=== PATIENT | female | born 1975 | race Caucasian/White ===

== ENCOUNTER 2024-03-25 00:18 | Day surgery (SDC) | payer OTHER, SELFPAY ==
[2024-03-19 14:37] VITALS: BMI 32.5
--- NOTE | 2024-03-19 14:44 | PC.NURSE ---
Report to the Outpatient Waiting Room, entrance under the green pavilion located off [facility], at time _0615_ on date _[id number]_. Planned Procedure Time: _0815_. Time changes happen often and if your time is changed the preop area will call you the afternoon before. - You and your visitor will be asked to self-screen and do not enter if you have any COVID symptoms. - A mask is optional within the hospital at this time. Patients may have clear liquids (water, carbonated beverages, clear teas, apple juice) until 3 hours prior to surgery with a maximum of 20 ounces. - No food from midnight until time of surgery Take the following medications with a SIP of water the morning of surgery: ___None DO NOT STOP ANY OF YOUR OTHER PRESCRIPTION MEDICATIONS PRIOR TO SURGERY ?EXCEPT THE FOLLOWING Medications to discontinue per physician None Date to take last dose Please no make-up, nail prydeinig, hairspray, perfume, deodorant, or body powder the day of surgery. No jewelry (including any body piercings) or valuables the day of surgery, leave them at home. Please take a shower or bath the night before, or the morning of, surgery with an antibacterial soap. Wear comfortable, loose fitting clothing. - Jewelry must be removed prior to entering the operating room. Rings and piercings that are not removed may be cut off. - The hospital will not accept responsibility for valuables. - Please leave all valuables, including medications, at home the day of surgery. If you are going home after surgery, a licensed retail delivery driver must drive you home. - NO public transportation without another adult if you receive anesthesia. - We recommend that an adult stay with you for 24 hours following discharge. - We also recommend that you do not drive, make important decision, drink alcoholic beverages, or take any drugs that were not prescribed by your health care provider for at least 24 hours after your discharge time. Follow any additional instructions given to you from your surgeon. If you or anyone in your household have experienced Covid symptoms in the past week, please notify your surgeon or the nurse liaison at the phone number below for possible testing. Telephone instructions given to __Tami__and asked if any additional questions and then verbalized understanding. Patient advised to call surgeon office or pre surgery nurse liaison [phone] if any additional questions.
--- NOTE | 2024-03-25 07:27 | WPDHPUPDATE1 ---
History and Physical Update Update Date/Time: 03/25/24 07:27 History and Physical has been reviewed, including an updated exam of the patient. There are NO changes in the patient's condition. Risks, benefits, and alternatives have been discussed and questions answered. Patient agrees to proceed with procedure.
--- NOTE | 2024-03-25 07:27 | PM.HPGS ---
History of Present Illness History of Present Illness Consent: Risks, benefits, and alternatives have been discussed and questions answered. Patient agrees to proceed with procedure. Chief complaint: abnormal uterine bleeding Narrative: Miryam Bernal is a 48 year old female with irregular heavy, prolonged bleeding. It was recommended to undergo D&C hysteroscopy. Risks of infection, bleeding perforation, and possible pathology are reviewed. Patient voices understanding and agrees to proceed. Review of Systems Review of Systems: not repeated day of surgery; patient states no changes in status PMFSH Past Medical History Medical History Acid reflux Anxiety Hyperlipidemia (normal spontaneous vaginal delivery) x2 Obese Seasonal allergies Vapes nicotine containing substance Surgical History Surgical History History of cholecystectomy Family History Family History Father Cancer Mother Hypertension Heart disease Grandparent Diabetes mellitus Depression Heart disease Cancer Social History Social History Smoking status: Current every day smoker Tobacco type: e-cigarettes/vaping Smokeless tobacco user: dissolvable tobacco Alcohol intake: current Alcohol use details: rarely Substance use: never Substance use type: does not use Lack of Transportation: No Lack of Food: Never True Current Housing: I Have Housing Concerned About Future Housing: No Difficulty Paying Gas/Electric Bills: No Difficulty Paying for Meds: No Currently Unemployed: No Education: Bachelor's Degree Difficulty w/ Childcare or Family Care: No Living arrangements: with family Occupation/Education: occupation Gender identity (if verbalized by the patient): Female Spiritual care concerns: No Meds Home Medications and Allergies Home Medications Medication Instructions Recorded Confirmed Type alprazolam 0.25 mg tablet 0.25 mg PO QHS PRN anxiety #30 tabs 11/10/23 03/19/24 Rx loratadine 10 mg tablet 10 mg PO DAILY 11/10/23 03/19/24 History albuterol sulfate 90 mcg/actuation 2 puff inhalation Q4H PRN 02/16/24 03/19/24 Rx aerosol inhaler shortness of breath or wheezing #8.5 grams omeprazole 20 mg capsule,delayed 20 mg PO DAILY #90 caps 02/19/24 03/19/24 Rx release Allergies Allergy/AdvReac Type Severity Reaction Status Date / Time No Known Allergies Allergy Verified 03/19/24 15:45 Exam Const: General: healthy appearing and alert Orientation/consciousness: patient oriented x3 Resp: Effort & Inspection: normal respiratory effort GI: GI Palp: Yes Soft to palpation, No Tenderness to palpation present (GI) and No Palpable mass present : External Female Exam: normal external appearance Speculum Exam - Vagina: normal appearance of the vagina and normal vaginal discharge Speculum Exam - Cervix: normal appearance of the cervix Bimanual exam- vagina & uterus: uterine size normal and consistency normal Bimanual Exam- Adnexa, other: normal adnexae and No adnexal tenderness Neuro: General: patient oriented x3 Assessment and Plan Assessment and plan (1) Menorrhagia: Code(s): N92.0 - Excessive and frequent menstruation with regular cycle Status: Acute Assessment and Plan: plan to proceed with D&C hysteroscopy
[2024-03-25 08:40] VITALS: BP 125/78; PULSE 58; RESP 20; TEMP 36.3; O2SAT 100
[2024-03-25] MEDS: ACETAMINOPHEN 500 MG TABLET 1000 MG PO (09:02)
[2024-03-25] MEDS: LACTATED RINGERS 1,000 ML 30 ML IV CONT (09:05)
--- NOTE | 2024-03-25 09:15 | SUR.PREOP ---
0905-Pt and family aware surgeon delays self ~30 minutes.
--- NOTE | 2024-03-25 10:05 | WPDANESEPPF ---
Anes - Initial Pre Proc Eval Procedure: Operation Date: 03/25/24 10:15 Proposed Procedures p Hysteroscopy Dilation and Curettage - Erinn Juárez MD Date/Time: 03/25/24 10:05 Surgeon: Erinn Juárez MD Pre Op Diagnosis: abnormal uterine bleeding Patient Data Age: 48 Gender: F Height: 1.68 m Weight: 92.3 kg Last Vital Signs Temp 97.3 F L 03/25/24 08:40 Pulse 58 L 03/25/24 08:40 Resp 20 03/25/24 08:40 BP 125/78 03/25/24 08:40 Pulse Ox 100 03/25/24 08:40 O2 Del Method Room Air 03/25/24 08:40 Allergies Allergy/AdvReac Type Severity Reaction Status Date / Time No Known Allergies Allergy Verified 03/25/24 08:44 Home Medications Medication Instructions Recorded Confirmed Type alprazolam 0.25 mg tablet 0.25 mg PO QHS PRN anxiety #30 tabs 11/10/23 03/25/24 Rx loratadine 10 mg tablet 10 mg PO DAILY 11/10/23 03/25/24 History albuterol sulfate 90 mcg/actuation 2 puff inhalation Q4H PRN 02/16/24 03/25/24 Rx aerosol inhaler shortness of breath or wheezing #8.5 grams omeprazole 20 mg capsule,delayed 20 mg PO DAILY #90 caps 02/19/24 03/25/24 Rx release Patient hx anesthesia problems: none Family hx anesthesia problems: none Results Review: All pre-operative results and documents have been reviewed as part of the pre-operative evaluation. [facility] Past Medical History Medical History Acid reflux Anxiety Hyperlipidemia (normal spontaneous vaginal delivery) x2 Obese Seasonal allergies Vapes nicotine containing substance Surgical History Surgical History History of cholecystectomy Family History Family History Father Cancer Mother Hypertension Heart disease Grandparent Diabetes mellitus Depression Heart disease Cancer Social History Social History Smoking status: Current every day smoker Tobacco type: e-cigarettes/vaping Smokeless tobacco user: dissolvable tobacco Alcohol intake: current Alcohol use details: rarely Substance use: never Substance use type: does not use Lack of Transportation: No Lack of Food: Never True Current Housing: I Have Housing Concerned About Future Housing: No Difficulty Paying Gas/Electric Bills: No Difficulty Paying for Meds: No Currently Unemployed: No Education: Bachelor's Degree Difficulty w/ Childcare or Family Care: No Living arrangements: with family Occupation/Education: occupation Gender identity (if verbalized by the patient): Female Spiritual care concerns: No Anes - Eval Final PreProcedure Day of Procedure 03/25/24 10:05 Patient weight: obese Heart: regular rate and rhythm Lungs: clear to auscultation Airway: Mallampati scale class II Neurological: alert and oriented Last oral intake: >/= 8 hours ASA classification: II Emergent: no Anesthetic plan: proceed Anesthesia type and monitoring: general GIVS and standard monitoring Results Review: All pre-operative results and documents have been reviewed as part of the pre-operative evaluation. Informed Consent: The patient's anesthetic plan and its attendant risks and benefits were discussed with the patient/family/POA. Questions were solicited and answers provided to the satisfaction of the patient/family/POA.
[2024-03-25] MEDS: KETOROLAC 15 MG/ML VIAL (*BKC) IV PUSH (11:21)
--- NOTE | 2024-03-25 11:28 | P.OP_ITS ---
Procedure Note - Detailed Date of Procedure 03/25/24 Pre-op Diagnosis abnormal uterine bleeding Post-op Diagnosis Same Procedure Performed hysteroscopy D&C Surgeon Erinn Juárez MD Anesthesia MAC Findings external os is stenotic; uterus sounds to 7cm and appears grossly normal Description of Procedure The patient is taken to the operating room and placed under anesthesia anatomy position. She was prepped and draped in the usual sterile fashion. Tennille speculum was placed in the vagina and the cervix grasped on the anterior lip with a tenaculum. The external os is stenotic. The uterus is sounded to 7cm. Upon entering the os a black blood clot is released. The hysteroscope was then placed and after the blood clots were washed away the endometrial lining appears grossly normal. The hysteroscope was removed and the sharp OO curette is used to curette the endometrium until a good uterine cry noted in areas and all instruments are removed. Sponge, needle, and instrument counts are correct per the OR staff. The patient was awakened from anesthesia and taken to recovery in stable condition. Estimated Blood Loss 5 Drains No Packing No Pathology Yes ( Endometrial curettings) Complications No immediate complications Condition Stable Disposition PACU
[2024-03-25 11:30] VITALS: BP 116/79; PULSE 63; RESP 16; O2SAT 100
[2024-03-25 12:00] VITALS: BP 117/70; PULSE 54; RESP 16
[2024-03-25] MEDS: oxyCODONE HCL (*CRX) 5 MG TAB IR PO (12:02)
[2024-03-25 12:25] VITALS: BP 116/68; PULSE 55; RESP 18
== END 2024-03-25 12:31 | disposition home or self-care (01) ==
PROVIDERS: PCP Nurse Practitioner Family; Visit Provider Obstetrics & Gynecology Gynecology
PROC: 0U5B8ZZ Destruction of Endometrium, Via Natural or Artificial Opening Endoscopic (ICD-10-PCS; CPT 58563; principal; 2024-03-25 10:15)
DX: N92.0 Excessive and frequent menstruation with regular cycle (principal); E78.5 Hyperlipidemia, unspecified; K21.9 Gastro-esophageal reflux disease without esophagitis; F41.9 Anxiety disorder, unspecified; E66.9 Obesity, unspecified; Z68.32 Body mass index [BMI] 32.0-32.9, adult; F17.290 Nicotine dependence, other tobacco product, uncomplicated; Z79.51 Long term (current) use of inhaled steroids
CPT/HCPCS: 58558; 88305; A9270; J1100; J1885; J2250; J2405; J2704; J3010; J7120

== ENCOUNTER 2025-04-05 12:31 | Emergency (ER) | payer OTHER, SELFPAY ==
--- NOTE | 2025-04-05 12:32 | ED.SKABFB ---
HPI - Skin/Abscess/Foreign Bdy General Chief complaint: Skin/Abscess/Foreign Body Stated complaint: stung by wasps Time Seen by Provider: 04/05/25 12:32 Source: patient Mode of arrival: ambulatory Limitations: no limitations History of Present Illness HPI narrative: Miryam is a 49-year-old female patient presenting to the clinic today with complaints of wasp sting x3 that occurred yesterday. She reports that the area is red, swollen, and very itchy. Has 1 sting to the left volar forearm, 1 sting to the left distal lateral leg, and 1 sting to the left lateral foot. Denies any shortness of breath, drooling, chest pain, or difficulty breathing. She has taken Benadryl for itching. States last night she could not sleep due to the areas itching. Areas do have pustule center. Related Data Home Medications ?Medication ?Instructions ?Recorded ?Confirmed ?Last Taken ?Type loratadine 10 mg tablet 10 mg PO DAILY 11/10/23 02/26/25 03/24/24 History progesterone micronized 200 mg 200 mg PO QHS 05/28/24 02/26/25 Unknown History capsule Allergies Allergy/AdvReac Type Severity Reaction Status Date / Time No Known Allergies Allergy Verified 04/05/25 12:43 [facility] Past Medical History Medical History Acid reflux Anxiety Hyperlipidemia (normal spontaneous vaginal delivery) x2 Obese Seasonal allergies Vapes nicotine containing substance Surgical History Surgical History History of cholecystectomy Family History Family History Father Cancer Mother Hypertension Heart disease Grandparent Diabetes mellitus Depression Heart disease Cancer Social History Social History (Updated 09/25/24 @ 14:42 by Jf Treviño) Social History: 09/25/24 very confident with medical forms Smoking status: Current every day smoker Tobacco type: e-cigarettes/vaping Smokeless tobacco user: dissolvable tobacco Alcohol intake: current Alcohol use details: rarely Substance use: never Substance use type: does not use Do You Feel Safe in your Home?: Yes Lack of Transportation: No Lack of Food: Never True Current Housing: I Have Housing Concerned About Future Housing: No Difficulty Paying Gas/Electric Bills: No Difficulty Paying for Meds: No Currently Unemployed: No Education: Bachelor's Degree Difficulty w/ Childcare or Family Care: No Living arrangements: with family Occupation/Education: occupation Gender identity (if verbalized by the patient): Female Spiritual care concerns: No Comments At the time of my signature, I reviewed and agree with the nursing past medical, surgical, social, and family history. There is no relevant family history pertinent to the patient complaint. Exam Narrative: General: Well-developed, well nourished, in no apparent distress Head: Normocephalic, atraumatic. Cardio: Regular rate and rhythm, s1 and s2 normal, no murmur appreciated. Resp: Clear to auscultation bilaterally, no rhonchi, rales, wheezing or rubs. Integumentary: Alda, warm, and dry, red, raised, indurated, itching, mild erythemic insect stings to the left volar forearm, left lateral lower leg just above the ankle, and to the left lateral ankle-green pustule noted in the center of these stings. Nontender to palpation-very itchy- redness measures approx 2.5cm around wasp sting Course Course Emergency Course: Portions of this record may have been created with voice recognition software. Level of Care: Express Care Visit Vital Signs Vital signs: Vital Signs Temperature 36.5 C 04/05/25 12:42 Pulse Rate 75 04/05/25 12:42 Respiratory Rate 16 04/05/25 12:42 Blood Pressure 138/69 04/05/25 12:42 Pulse Oximetry 100 04/05/25 12:42 Temperature 36.5 C 04/05/25 12:42 Pulse Rate 75 04/05/25 12:42 Respiratory Rate 16 04/05/25 12:42 Blood Pressure 138/69 04/05/25 12:42 Pulse Oximetry 100 04/05/25 12:42 Vital signs reviewed MDM - Skin/Abscess/Foreign Bdy MDM Narrative Medical decision making narrative: At the time of visit patient is resting comfortably on the exam table. Patient appears to be nontoxic. Complaints of wasp sting x3 that occurred yesterday. She reports that the area is red, swollen, and very itchy. Has 1 sting to the left volar forearm, 1 sting to the left distal lateral leg, and 1 sting to the left lateral foot. Denies any shortness of breath, drooling, chest pain, or difficulty breathing. Ice pack was given. She has taken Benadryl for her symptoms. Has green pustule to the center of the insect stings. No fevers, chills, body aches. Plan: I suspect patient has allergic reaction to a wasp sting with likely a secondary infection. Prescription for prednisone, triamcinolone cream, and doxycycline was sent to the pharmacy. Supportive measures were discussed with the patient and they voiced understanding discharge instructions and agrees to treatment plan. Return precautions reviewed Differential Diagnosis Differential diagnosis: Likely abscess of skin or subcutaneous tissue, viral exanthem, dermatophytosis, urticaria, herpes zoster, allergic reaction to drug, cellulitis, eczema, insect bites, impetigo and contact dermatitis Discharge Plan Discharge Clinical Impression: Allergic reaction to wasp sting Patient Disposition: Home Condition: Stable Instructions: Antibiotic Form, Insect Bite or Sting (ED), General Allergic Reaction (ED) Additional Instructions: Apply triamcinolone cream as directed Take prednisone as directed Take doxycycline as prescribed Avoid hot showers May apply cool compresses to the affected area to help alleviate pain/swelling Avoid scratching as this can cause a secondary infection May take Benadryl 25-50mg every 6 hours as needed for itching. Follow up with your PCP in 3-5 days if symptoms persist or sooner if they worsen Go to the Emergency Room if symptoms worsen- fever, rash spreading with treatment, shortness of breath, tongue swelling, drooling, or chest pain Patient Language: Cambodian Prescriptions: New prednisone 20 mg tablet 40 mg PO DAILY 5 Days Qty: 10 0RF doxycycline monohydrate 100 mg capsule 100 mg PO BID 7 Days Qty: 14 0RF triamcinolone acetonide 0.1 % cream 1 applic topical BID 7 Days Qty: 30 0RF No Action loratadine 10 mg tablet 10 mg PO DAILY progesterone micronized 200 mg capsule 200 mg PO QHS alprazolam 0.25 mg tablet 0.25 mg PO QHS PRN (Reason: anxiety) Qty: 30 0RF Wegovy 2.4 mg/0.75 mL pen injector 2.4 mg subcut WEEKLY Qty: 3 0RF simvastatin 40 mg tablet 40 mg PO DAILY Qty: 90 1RF omeprazole 20 mg capsule,delayed release(DR/EC) 20 mg PO DAILY Qty: 90 1RF albuterol sulfate 90 mcg/actuation HFA aerosol inhaler 2 puff inhalation Q4H PRN (Reason: shortness of breath or wheezing) Qty: 8.5 1RF Follow-up/Referrals: Ange Sun APRN [Primary Care Provider] - Time of Disposition: 12:48 Quality NIHSS Nursing Documentation ED NIHSS nursing documentation: reviewed/agree
[2025-04-05 12:42] VITALS: BP 138/69; PULSE 75; RESP 16; TEMP 36.5; O2SAT 100
== END 2025-04-05 13:10 | disposition home or self-care (01) ==
PROVIDERS: Emergency Provider Nurse Practitioner Family; PCP Nurse Practitioner Family
DX: T63.461A Toxic effect of venom of wasps, accidental (unintentional), initial encounter (principal); F17.290 Nicotine dependence, other tobacco product, uncomplicated; E78.5 Hyperlipidemia, unspecified; K21.9 Gastro-esophageal reflux disease without esophagitis; E66.9 Obesity, unspecified; Z68.31 Body mass index [BMI] 31.0-31.9, adult; F41.9 Anxiety disorder, unspecified
CPT/HCPCS: 99213; G0463